=== PATIENT | female | born 1975 ===

== ENCOUNTER 2025-06-17 10:49 | Outpatient (CLI) | payer OTHER | END 2025-06-17 10:50 | disposition home or self-care (01) | LOC: SONOGRAMA 10:49 | PROVIDERS: ATTEND Pathology Anatomic Pathology & Clinical Pathology | DX: D34 Benign neoplasm of thyroid gland (principal); E07.89 Other specified disorders of thyroid; E21.2 Other hyperparathyroidism; R22.1 Localized swelling, mass and lump, neck ==